=== PATIENT | female | born 1980 | race Two or more races ===

== ENCOUNTER 2018-01-31 21:23 | Emergency (ER) | payer BC, MEDICAID, OTHER ==
[~2018-01-31] VITALS: Ht 167.6 cm; Wt 130.2 kg
[2018-01-31] MEDS ORDERED: MORPHINE SULFATE 4 MG/ML, 1ML IVPush PRN (22:00)
[2018-01-31] MEDS ORDERED: SODIUM CHLORIDE FLUSH 10ML SYR IVF ONE (22:00)
[2018-01-31] MEDS ORDERED: ONDANSETRON ODT 4 MG PO ONE (22:00)
[2018-01-31 22:32] LABS: BASOPHILS # (AUTO) 0.02 x10^3/uL (0-0.1); BASOPHILS % (AUTO) 0 % (0-1); EOSINOPHILS # (AUTO) 0.01 x10^3/uL (0-0.4); EOSINOPHILS % (AUTO) 0 % (1-7); LYMPHOCYTES # (AUTO) 2.18 x10^3/uL (1-3.4); LYMPHOCYTES % (AUTO) 13 % (22-44); MD NO; MEAN CORPUSCULAR HEMOGLOBIN 26.7 pg (27.0-34.8); MEAN CORPUSCULAR HGB CONC 33.4 g/dL (32.4-35.8); MEAN CORPUSCULAR VOLUME 80.1 fL (80-100); MEAN PLATELET VOLUME 7.8 fL (7.4-10.4); MONOCYTES # (AUTO) 0.54 x10^3/uL (0.2-0.8); MONOCYTES % (AUTO) 3 % (2-9); NEUTROPHILS # (AUTO) 14.09 x10^3/uL (1.8-6.8); NEUTROPHILS % (AUTO) 84 % (42-75); PLATELET COUNT 373 x10^3/uL (130-400); RED BLOOD COUNT 5.19 x10^6/uL (3.82-5.3); RED CELL DISTRIBUTION WIDTH 15.7 % (9.6-15.2)
[2018-01-31 22:39] LABS: ALANINE AMINOTRANSFERASE 97 U/L (12-78); ALBUMIN 3.7 g/dL (3.4-5.0); ANION GAP 8 mmol/L (5-15); CHLORIDE 107 mmol/L (98-107); CREATININE 1.03 mg/dL (0.55-1.02)
[2018-01-31 22:44] LABS: ALKALINE PHOSPHATASE 177 U/L (45-117); BILIRUBIN,TOTAL 0.8 mg/dL (0.2-1.0); TOTAL PROTEIN 8.4 g/dL (6.4-8.2)
[2018-01-31] MEDS ORDERED: ONDANSETRON ODT 4 MG ONE (22:50)
[2018-01-31] MEDS ORDERED: MORPHINE SULFATE 4 MG/ML, 1ML ONE (22:51)
[2018-01-31 23:29] LABS: CULTURE INDICATED? YES; MICROSCOPIC INDICATED
[2018-02-01 00:09] VITALS: BP 128/69
[2018-02-01] MEDS ORDERED: METOCLOPRAMIDE 10MG TABLET ONE (00:52)
[2018-02-01] MEDS ORDERED: METOCLOPRAMIDE 10MG TABLET PO ONE (01:00)
== END 2018-02-01 01:08 | disposition home or self-care (01) ==
LOC: ED 02-01 01:05
DX: R10.11 Right upper quadrant pain (principal); R10.13 Epigastric pain; R74.8 Abnormal levels of other serum enzymes; R14.0 Abdominal distension (gaseous)
CPT/HCPCS: 36415; 74177; 76700; 80053; 81001; 83690; 84703; 85025; 87086; 96374; 99285; Q0162